=== PATIENT | female | born 1995 | race Caucasian/White ===

== ENCOUNTER 2017-10-26 08:49 | Emergency (ER) | payer OTHER ==
--- NOTE | 2017-10-26 09:22 | ER Document Report ---
HPI - HPI Patient complains to provider of: Injured right arm Onset: Other - 2 days ago Onset/Duration: Sudden Pain Level: 3 Context: 22-year-old right-handed female fell backwards while snowboarding on her last round 2 days ago at [facility]. She is unable to straighten and supinate her arm and has swelling to her elbow. Associated Symptoms: None Exacerbated by: Denies Relieved by: Denies Similar symptoms previously: No Recently seen / treated by doctor: No - ROS ROS below otherwise negative: Yes Systems Reviewed and Negative: Yes All other systems reviewed and negative - REPRODUCTIVE Reproductive: DENIES: : Past Medical History - General Information source: Patient - Social History Smoking Status: Never Smoker Frequency of alcohol use: Occasional Drug Abuse: None Occupation: [employer] Family History: Reviewed & Not Pertinent - Medical History Medical History: Negative Surgical Hx: Negative - Immunizations Hx Diphtheria, Pertussis, Tetanus Vaccination: Yes Vertical Provider Document - CONSTITUTIONAL Agree With Documented VS: Yes - INFECTION CONTROL TRAVEL OUTSIDE OF THE [place] IN LAST 30 DAYS: No - HEENT HEENT: Normocephalic - NECK Neck: Supple - RESPIRATORY O2 Sat by Pulse Oximetry: 98 - MUSCULOSKELETAL/EXTREMETIES Musculoskeletal/Extremeties: Tender - lateral right elbow, N/V intact distally, unable to extend or supinate, Edema, Eccymosis. negative: FROM - NEURO Level of Consciousness: Awake, Alert Motor/Sensory: No Motor Deficit, No Sensory Deficit - DERM Integumentary: Warm, Dry Course - Re-evaluation Re-evalutation: 10/26/17 09:55 Radial head fracture with effusion per radiologist - Vital Signs Vital signs: Temp Pulse Resp BP Pulse Ox 99.5 F 65 16 123/74 98 10/26/17 08:55 10/26/17 08:55 10/26/17 08:55 10/26/17 08:55 10/26/17 08:55 Procedures - Immobilization Right Arm Time completed: 10:18 Pre-Proc Neuro Vasc Exam: Normal Immobilizer type: Long arm posterior Performed by: PCT Post-Proc Neuro Vasc Exam: Normal Alignment checked and good: Yes Discharge - Discharge Clinical Impression: Right radial head fracture Qualifiers: Encounter type: initial encounter Fracture type: closed Fracture alignment: nondisplaced Qualified Code(s): S52.124A - Nondisplaced fracture of head of right radius, initial encounter for closed fracture Condition: Good Disposition: HOME, SELF-CARE Instructions: Acetaminophen, Anti-Inflammatory Medication ([facility]), Radial Head Fracture ([facility]), Sling to be Used ([facility]), Splint Pending Casting ([facility]) Additional Instructions: Call the orthopedic doctor today for follow-up appointment this week Splint Sling Tylenol up to 4000 mg a day Motrin Return to the emergency room any concerns Prescriptions: Ibuprofen [Motrin 800 mg Tablet] 800 mg PO Q8HP PRN #30 tablet PRN Reason: Referrals: SHARI WARREN MD [ACTIVE STAFF] - Follow up tomorrow (call today for follow up appt this week)
--- NOTE | 2017-10-26 09:45 | RADIOLOGY REPORT (SQ) ---
EXAM DESCRIPTION: ELBOW RIGHT AP/LAT COMPLETED DATE/TIME: 10/26/2017 9:35 am REASON FOR STUDY: fall 2 days ago COMPARISON: None. NUMBER OF VIEWS: Three views. TECHNIQUE: AP, lateral, and oblique radiographic images acquired of the right elbow. LIMITATIONS: None. FINDINGS: MINERALIZATION: Normal. BONES: Slightly impacted radial head fracture. JOINT: Large joint effusion. SOFT TISSUES: No soft tissue swelling. No foreign body. OTHER: No other significant finding. IMPRESSION: Radial head fracture with large joint effusion. TECHNICAL DOCUMENTATION: JOB ID: [id number] [employer]- All Rights Reserved Reading location - IP/workstation name: [email or web address]
[2017-10-26 10:25] VITALS: BP 116/67
== END 2017-10-26 10:25 | disposition home or self-care (01) ==
LOC: ER 08:49
DX: S52.124A Nondisplaced fracture of head of right radius, initial encounter for closed fracture (principal); V00.311A Fall from snowboard, initial encounter; Y93.23 Activity, snow (alpine) (downhill) skiing, snowboarding, sledding, tobogganing and snow tubing; Y92.39 Other specified sports and athletic area as the place of occurrence of the external cause
CPT/HCPCS: 99283